=== PATIENT | female | born 1970 | race African-American/Black ===

== ENCOUNTER 2018-01-03 14:30 | Emergency (ER) ==
[2018-01-03 14:40] VITALS: BP 128/85; TEMP 96.1; BMI 37.4
--- NOTE | 2018-01-03 14:58 | ED.PDOC ---
General ED Provider: Dr. VERONICA SALTER MD Chief Complaint: Non-specific Complaint Stated Complaint: tiny yellowish vaginal discharge Time Seen by Physician: 03:00 Mode of Arrival: Walk-In Information Source: Patient Exam Limitations: No limitations Primary Care Provider: [facility] Nursing and Triage Documentation Reviewed and Agree: Yes Reviewed sepsis parameters & appropriate labs ordered?: Yes System Inflammatory Response Syndrome: Not Applicable Sepsis Protocol: For patient's 13 years and over: Temp is 96.8 and below OR 101 and greater Pulse >90 BPM Resp >20/minute Acutely Altered Mental Status Are patient's symptoms suggestive of a new infection, such as: -Pneumonia -Skin, Soft Tissue -Endocarditis -UTI -Bone, Joint Infection -Implantable Device -Acute Abdominal Infection -Wound Infection -Meningitis -Blood Stream Catheter Infection -Unknown Complaint Exam - Complaint/Exam Onset/Duration: few days Symptoms Are: Still present Timing: Intermittent (mild yellow) Initial Severity: Mild Current Severity: None Location of Pain: Reports: None Aggravating: Reports: None Alleviating: Reports: None Ectopic Risk Factors: Reports: None RH Status: Unknown Related Surgical History: Reports: None Abdominal Findings: Present: None (vaginal exam deferred per patient) Review of Systems - Review Of Systems Constitutional: Reports: No symptoms Eyes: Reports: No symptoms Ears, Nose, Mouth, Throat: Reports: No symptoms Respiratory: Reports: No symptoms Cardiac: Reports: No symptoms GI: Reports: No symptoms : Reports: Discharge (mild yellow vag ) Musculoskeletal: Reports: No symptoms Skin: Reports: No symptoms Neurological: Reports: No symptoms Endocrine: Reports: No symptoms Hematologic/Lymphatic: Reports: No symptoms All Other Systems: Reviewed and Negative Past Medical History - Past Medical History Endocrine: Reports: None Cardiovascular: Reports: None Respiratory: Reports: None, Other Hematological: Reports: None Gastrointestinal: Reports: None Genitourinary: Reports: None Neuro/Psych: Reports: None Musculoskeletal: Reports: None Cancer: Reports: None Last Menstrual Period: na - Surgical History General Surgical History: Reports: None - Family History Family History: Reports: None - Social History Smoking Status: Current some day smoker Hx Substance Use: No Alcohol Screening: None - Immunizations Tetanus Shot up to Date: Yes Physical Exam - Physical Exam Appearance: Well-appearing, No pain distress, Well-nourished Ill-appearing: None Pain Distress: None Eyes: KATHI, EOMI, Conjunctiva clear ENT: Ears normal, Nose normal, Oropharynx normal Neck: Supple Respiratory: Airway patent, Breath sounds clear, Breath sounds equal, Respirations nonlabored Cardiovascular: RRR, Pulses normal, No rub, No murmur GI/: Soft, Nontender, No masses, Bowel sounds normal, No Organomegaly Musculoskeletal: Normal strength, ROM intact, No edema, No calf tenderness Skin: Warm, Dry, Normal color Neurological: Sensation intact, Motor intact, Reflexes intact, Cranial nerves intact, Alert, Oriented Re-Evaluation - Re-Evaluation Time of Re-Evaluation: 03:15 Status: Unchanged Vital Signs Stable: Yes Appearance: NAD Lungs: Clear Skin: Warm and Dry Neuro: Alert and Oriented X3 CV: RRR Critical Care Note - Critical Care Note Total Time (mins): 0 Course - Course Orders, Labs, Meds: Orders Category Date Time Status Ceftriaxone Sodium [Rocephin] MEDS 01/03/18 15:00 Discontinued 500 mg IM ONCE STA Lidocaine HCl/Pf [Lidocaine HCl 1% Sdv] MEDS 01/03/18 15:00 Discontinued 2.1 ml IM ONCE STA Medications Discontinued Medications Generic Name Dose Route Start Last Admin Trade Name Freq PRN Reason Stop Dose Admin Ceftriaxone Sodium 500 mg 01/03/18 15:00 01/03/18 15:18 Rocephin IM 01/03/18 15:01 500 mg ONCE STA Administration Lidocaine HCl 2.1 ml 01/03/18 15:00 01/03/18 15:19 Lidocaine Hcl 1% Sdv IM 01/03/18 15:01 2.1 ml ONCE STA Administration Vital Signs: Temp Pulse Resp BP Pulse Ox 01/03/18 14:32 96.1 F L 113 H 20 128/85 95 Departure - Departure Time of Disposition: 15:40 Disposition: HOME SELF-CARE Discharge Problem: Vaginal discharge Condition: Good Pt referred to PMD for follow-up: Yes IPMP verified?: No Allergies/Adverse Reactions: Allergies Sulfa (Sulfonamide Antibiotics) Adverse Reaction (Verified 11/16/15 04:05) BREAK OUT Home Medications: Ambulatory Orders Albuterol Sulfate [Proair Hfa] 2 puff IH Q4H PRN 09/05/15 Amlodipine Besylate 10 mg PO DAILY 09/05/15 Aspirin [Aspirin Chewable] 81 mg PO DAILYWM 09/05/15 Atorvastatin Calcium [Lipitor] 10 mg PO DAILY 09/05/15 Buspirone HCl 15 mg PO TID 09/05/15 Citalopram Hydrobromide [Celexa] 40 mg PO DAILY 09/05/15 Ibuprofen 800 mg PO TID #30 tablet 09/05/15 Losartan Potassium [Cozaar] 50 mg PO DAILY 09/05/15 Metformin HCl [Glucophage] 1,000 mg PO BEDTIME 09/05/15
[2018-01-03] MEDS ORDERED: ROCEPHIN IM STA (15:00)
[2018-01-03] MEDS ORDERED: LIDOCAINE HCL 1% SDV IM STA (15:00)
== END 2018-01-03 16:09 | disposition home or self-care (01) ==
LOC: ED 14:30
DX: N89.8 Other specified noninflammatory disorders of vagina (principal); F17.210 Nicotine dependence, cigarettes, uncomplicated
CPT/HCPCS: 96372; 99283

== ENCOUNTER 2019-01-16 11:10 | Emergency (ER) ==
[2019-01-16 11:17] VITALS: BP 134/90; TEMP 98.5; BMI 34.8
--- NOTE | 2019-01-16 12:18 | ED.PDOC ---
General ED Provider: Dr. VERONICA NUGENT Chief Complaint: Back Pain Stated Complaint: Severe lower back pain. HPI Works at [employer] and last month lifted a crate of chicken and strained her low back. States most of pain midline of LS region with some discomfort radiating into Rt Posterior hip and proximal thigh. Has been under care of [facility] and most recently evaluated by Wilmer COKER. MRI Imaging revealed degenerative lumbar disease and lumbar instability ( Spondylothesis). Pt state was taken off work for 4 weeks and provider recommended on his note to change her job function in an attempt to avoid positions and activities that would excaberate her symptoms. Time Seen by Physician: 11:20 Mode of Arrival: Walk-In Information Source: Patient Exam Limitations: Clinical condition Nursing and Triage Documentation Reviewed and Agree: Yes Does patient meet sepsis criteria?: No System Inflammatory Response Syndrome: Not Applicable Sepsis Protocol: For patient's 13 years and over: Temp is 96.8 and below OR 101 and greater Pulse >90 BPM Resp >20/minute Acutely Altered Mental Status Are patient's symptoms suggestive of a new infection, such as: -Pneumonia -Skin, Soft Tissue -Endocarditis -UTI -Bone, Joint Infection -Implantable Device -Acute Abdominal Infection -Wound Infection -Meningitis -Blood Stream Catheter Infection -Unknown Musculoskeletal Complaint Exam - Back Pain Complaint/Exam Mechanism of Injury: Reports: Other (Lifting injury) Onset/Duration: 3 weeks Symptoms Are: Worse Timing: Constant Episodes Lasting: Hours Initial Severity: Severe Current Severity: Severe Location: Reports: Diffuse, Radiating Character: Reports: Sharp, Aching, Throbbing, Spasmodic Aggravating: Reports: Movements, Lifting, Bending, Walking Alleviating: Reports: Rest (minimal relief) Associated Signs and Symptoms: Denies: Swelling, Redness, Bruising, Fever, Weakness, Numbness, Tingling, Abdominal pain, Flank pain, Bladder incontinence, Bowel incontinence, Weight loss, Pain with weight bearing Related History: Denies: Similar episode TAD Risk Factors: Reports: None AAA Risk Factors: Reports: None Cauda Equina Risk Factors: Reports: None Epidural Abcess Risk Factors: Reports: None Focal Tenderness: Yes (LS regon and Rt SI) Paraspinal Muscle Tenderness: No Paraspinal Muscle Spasm: Yes (Rt LS) Scoliosis: No Lordosis: No Kyphosis: No SLR Test: Right Negative (Seated and supine), Left Negative Hip Motion Testing Pain: Right Positive, Left Negative Focal Weakness: Present: RLE Focal Sensory Loss: Present: None Gait: Present: Abnormal Back Picture: 1 - Site of pain Review of Systems - Review Of Systems Constitutional: Reports: No symptoms Eyes: Reports: No symptoms Ears, Nose, Mouth, Throat: Reports: No symptoms Respiratory: Reports: No symptoms Cardiac: Reports: No symptoms GI: Reports: No symptoms : Reports: No symptoms Musculoskeletal: Reports: Back pain, Joint pain, Muscle stiffness Skin: Reports: No symptoms Neurological: Reports: No symptoms Endocrine: Reports: No symptoms Hematologic/Lymphatic: Reports: No symptoms All Other Systems: Reviewed and Negative Past Medical History - Past Medical History Endocrine: Reports: None Cardiovascular: Reports: None Respiratory: Reports: None, Other Hematological: Reports: None Gastrointestinal: Reports: None Genitourinary: Reports: None Neuro/Psych: Reports: None Musculoskeletal: Reports: None Cancer: Reports: None Last Menstrual Period: january 02 - Surgical History General Surgical History: Reports: None - Family History Family History: Reports: None - Social History Smoking Status: Current every day smoker, Light tobacco smoker Hx Substance Use: No Alcohol Screening: None Physical Exam - Physical Exam Appearance: Ill-appearing, Obese Ill-appearing: None Pain Distress: Moderate Eyes: KATHI, EOMI, Conjunctiva clear ENT: Ears normal Neck: Supple Respiratory: Airway patent, Breath sounds clear, Breath sounds equal, Respirations nonlabored Cardiovascular: RRR GI/: Soft, Nontender, No masses, Bowel sounds normal, No Organomegaly Musculoskeletal: Normal strength, No edema, No calf tenderness, Limited ROM Skin: Warm, Dry, Normal color Neurological: Sensation intact, Motor intact, Reflexes intact, Cranial nerves intact, Alert, Oriented Psychiatric: Affect appropriate, Mood appropriate, Anxious Critical Care Note - Critical Care Note Total Time (mins): 60 Course - Course Hematology/Chemistry: 01/16/19 12:40 01/16/19 12:40 Orders, Labs, Meds: Lab Review 01/16/19 01/16/19 01/16/19 12:30 12:40 12:40 WBC 8.97 RBC 5.03 Hgb 14.3 Hct 42.7 MCV 84.9 MCH 28.4 MCHC 33.5 RDW Coeff of Sridhar 12.7 Plt Count 305 Immature Gran % (Auto) 0.2 Neut % (Auto) 54.4 Lymph % (Auto) 32.0 [place] % (Auto) 6.2 Eos % (Auto) 6.6 Baso % (Auto) 0.6 Immature Gran # (Auto) 0.0 Neut # (Auto) 4.9 Lymph # (Auto) 2.9 [place] # (Auto) 0.6 Eos # (Auto) 0.6 Baso # (Auto) 0.1 ESR Sodium 139.9 Potassium 3.98 Chloride 102.3 Carbon Dioxide 27.8 Anion Gap 13.78 BUN 14.1 Creatinine 0.96 Estimated GFR (MDRD) 75.00 BUN/Creatinine Ratio 14.68 Glucose 92.2 Calcium 9.60 Total Bilirubin 0.60 AST 19.0 ALT 15.7 Alkaline Phosphatase 83.5 Total Creatine Kinase 57.8 Total Protein 8.24 H Albumin 4.82 Globulin 3.42 Albumin/Globulin Ratio 1.40 Urine Color Yellow Urine Clarity Clear Urine pH 5.5 Ur Specific [place] 1.025 Urine Protein Negative Urine Glucose (UA) Negative Urine Ketones Negative Urine Blood Negative Urine Nitrite Negative Urine Bilirubin Negative Urine Urobilinogen 0.2 Ur Leukocyte Esterase Negative Urine Opiates Screen Ur Oxycodone Screen Urine Methadone Screen Ur Propoxyphene Screen Ur Barbiturates Screen U Tricyclic Antidepress Ur Phencyclidine Scrn Ur Amphetamine Screen U Methamphetamines Scrn U Benzodiazepines Scrn Urine Cocaine Screen U Cannabinoids Screen 01/16/19 01/16/19 12:40 12:40 WBC RBC Hgb Hct MCV MCH MCHC RDW Coeff of Sridhar Plt Count Immature Gran % (Auto) Neut % (Auto) Lymph % (Auto) [place] % (Auto) Eos % (Auto) Baso % (Auto) Immature Gran # (Auto) Neut # (Auto) Lymph # (Auto) [place] # (Auto) Eos # (Auto) Baso # (Auto) ESR 14 Sodium Potassium Chloride Carbon Dioxide Anion Gap BUN Creatinine Estimated GFR (MDRD) BUN/Creatinine Ratio Glucose Calcium Total Bilirubin AST ALT Alkaline Phosphatase Total Creatine Kinase Total Protein Albumin Globulin Albumin/Globulin Ratio Urine Color Urine Clarity Urine pH Ur Specific [place] Urine Protein Urine Glucose (UA) Urine Ketones Urine Blood Urine Nitrite Urine Bilirubin Urine Urobilinogen Ur Leukocyte Esterase Urine Opiates Screen Positive Ur Oxycodone Screen Negative Urine Methadone Screen Negative Ur Propoxyphene Screen Negative Ur Barbiturates Screen Negative U Tricyclic Antidepress Negative Ur Phencyclidine Scrn Negative Ur Amphetamine Screen Negative U Methamphetamines Scrn Negative U Benzodiazepines Scrn Negative Urine Cocaine Screen Negative U Cannabinoids Screen Negative Orders Category Date Time Status CBC W/ AUTO DIFF Stat LAB 01/16/19 12:40 Completed CMP [COMPREHENSIVE METABOLIC PANEL] Stat LAB 01/16/19 12:40 Completed CPK [CREATINE KINASE] Stat LAB 01/16/19 12:40 Completed ESR Stat LAB 01/16/19 12:40 Completed UA [URINALYSIS C & S IF INDICATED] Stat LAB 01/16/19 12:30 Completed URINE DRUG SCREEN (RAPID FOR ED) [DRUG SCREEN, URINE, LAB 01/16/19 12:40 Completed RAPID] Stat Nalbuphine HCl [Nubain] MEDS 01/16/19 12:25 Discontinued 10 mg IM ONCE STA Orphenadrine Citrate [Norflex] MEDS 01/16/19 12:24 Discontinued 60 mg IM ONCE STA Medications Discontinued Medications Generic Name Dose Route Start Last Admin Trade Name Freq PRN Reason Stop Dose Admin Nalbuphine HCl 10 mg 01/16/19 12:25 01/16/19 12:37 Nubain IM 01/16/19 12:26 10 mg ONCE STA Administration Orphenadrine Citrate 60 mg 01/16/19 12:24 01/16/19 12:36 Norflex IM 01/16/19 12:25 60 mg ONCE STA Administration Vital Signs: Temp Pulse Resp BP Pulse Ox 01/16/19 11:10 98.5 F 105 H 20 134/90 96 Departure - Departure Time of Disposition: 13:50 Disposition: HOME SELF-CARE Discharge Problem: Lumbar spine pain, Lumbar degenerative disc disease Instructions: Low Back Strain (ED), Degenerative Disc Disease (ED) Condition: Fair Pt referred to PMD for follow-up: Yes (in next week) IPMP verified?: Yes (no findings) Additional Instructions: Use existing meds at home. Your urine drug screen was positive for opiates-use cautiousl See PCP or specialist as planned Return to ER as necessary Allergies/Adverse Reactions: Allergies Sulfa (Sulfonamide Antibiotics) Adverse Reaction (Verified 01/16/19 11:19) BREAK OUT Home Medications: Ambulatory Orders Albuterol Sulfate [Proair Hfa] 2 puff IH Q4H PRN 09/05/15 Amlodipine Besylate 10 mg PO DAILY 09/05/15 Aspirin [Aspirin Chewable] 81 mg PO DAILYWM 09/05/15 Atorvastatin Calcium [Lipitor] 10 mg PO DAILY 09/05/15 Buspirone HCl 15 mg PO TID 09/05/15 Citalopram Hydrobromide [Celexa] 40 mg PO DAILY 09/05/15 Losartan Potassium [Cozaar] 50 mg PO DAILY 09/05/15 Metformin HCl [Glucophage] 1,000 mg PO BEDTIME 09/05/15 Meloxicam 15 mg PO BID 01/16/19 Quetiapine Fumarate 50 mg PO BEDTIME 01/16/19 Disposition Discussed With: Patient
[2019-01-16] MEDS ORDERED: NORFLEX IM STA (12:24)
[2019-01-16] MEDS ORDERED: NUBAIN IM STA (12:25)
== END 2019-01-16 14:02 | disposition home or self-care (01) ==
LOC: ED 11:10
DX: M54.5 Low back pain (principal); M51.36 Other intervertebral disc degeneration, lumbar region; F17.210 Nicotine dependence, cigarettes, uncomplicated; Z79.899 Other long term (current) drug therapy
CPT/HCPCS: 36415; 80053; 80306; 81001; 82550; 85025; 85651; 96372; 99283

== ENCOUNTER 2019-02-04 18:50 | Emergency (ER) ==
[2019-02-04 19:02] VITALS: BP 134/97; TEMP 99.2; BMI 33.9
--- NOTE | 2019-02-04 20:07 | ED.PDOC ---
General ED Provider: Dr. JOSE JOHNSON Chief Complaint: Extremity Pain/Injury Stated Complaint: potenmtial s ciatica robison opn right sie in patient with fdegenerativr dicopathy. 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 Time Seen by Physician: 19:00 Mode of Arrival: Wheelchair Information Source: Patient Exam Limitations: No limitations Primary Care Provider: DAREN JESSICA Nursing and Triage Documentation Reviewed and Agree: Yes Does patient meet sepsis criteria?: No System Inflammatory Response Syndrome: Not Applicable Sepsis Protocol: For patient's 13 years and over: Temp is 96.8 and below OR 101 and greater Pulse >90 BPM Resp >20/minute Acutely Altered Mental Status Are patient's symptoms suggestive of a new infection, such as: -Pneumonia -Skin, Soft Tissue -Endocarditis -UTI -Bone, Joint Infection -Implantable Device -Acute Abdominal Infection -Wound Infection -Meningitis -Blood Stream Catheter Infection -Unknown Musculoskeletal Complaint Exam - Back Pain Complaint/Exam Mechanism of Injury: Reports: No known trauma Onset/Duration: today Symptoms Are: Still present Timing: Constant Episodes Lasting: Hours Initial Severity: Moderate Current Severity: Moderate Location: Reports: Diffuse Character: Reports: Aching Aggravating: Reports: Movements, Lifting, Bending Alleviating: Reports: Rest Related History: Reports: Similar episode TAD Risk Factors: Reports: None AAA Risk Factors: Reports: None Cauda Equina Risk Factors: Reports: None Epidural Abcess Risk Factors: Reports: None Related Surgical History: Reports: None Focal Tenderness: No Paraspinal Muscle Tenderness: No Paraspinal Muscle Spasm: No Scoliosis: No Lordosis: No Kyphosis: No Focal Weakness: Present: None Focal Sensory Loss: Present: None Gait: Present: Unable Differential Diagnoses: Arthritis, Herniated Disk, Strain, Sprain, Other Review of Systems - Review Of Systems Constitutional: Reports: No symptoms Eyes: Reports: No symptoms Ears, Nose, Mouth, Throat: Reports: No symptoms Respiratory: Reports: No symptoms Cardiac: Reports: No symptoms GI: Reports: No symptoms : Reports: No symptoms Musculoskeletal: Reports: Back pain, Muscle pain, Other Skin: Reports: No symptoms Neurological: Reports: Weakness Endocrine: Reports: No symptoms Hematologic/Lymphatic: Reports: No symptoms All Other Systems: Reviewed and Negative Past Medical History - Past Medical History Endocrine: Reports: None Cardiovascular: Reports: None Respiratory: Reports: None, Other Hematological: Reports: None Gastrointestinal: Reports: None Genitourinary: Reports: None Neuro/Psych: Reports: None Musculoskeletal: Reports: None Cancer: Reports: None Last Menstrual Period: 02/01/19 - Surgical History General Surgical History: Reports: None - Family History Family History: Reports: None - Social History Smoking Status: Current every day smoker, Light tobacco smoker Hx Substance Use: No Alcohol Screening: None Physical Exam - Physical Exam Appearance: Well-appearing Ill-appearing: Mild Pain Distress: Severe Eyes: KATHI ENT: Ears normal, Nose normal, Oropharynx normal Neck: Supple Respiratory: Airway patent, Breath sounds clear Cardiovascular: RRR, Pulses normal, No rub, No murmur GI/: Soft, Nontender, No masses Musculoskeletal: Normal strength Skin: Warm, Dry Neurological: Sensation intact Psychiatric: Affect appropriate Critical Care Note - Critical Care Note Total Time (mins): 0 Course - Course Orders, Labs, Meds: Orders Category Date Time Status IV [ED IV/MEDIPORT/POWERPORT] .ONCE EMERGENCY 02/04/19 20:08 Active 0.9 % Sodium Chloride [Saline Flush] MEDS 02/04/19 20:08 Ordered 1 syr IVF PRN PRN Hydromorphone HCl [Dilaudid 1 mg/ml Syringe] MEDS 02/04/19 21:17 Discontinued 1 mg IVP ONCE STA Ketorolac Tromethamine [Toradol] MEDS 02/04/19 20:08 Discontinued 30 mg IM ONCE STA Methylprednisolone Sod Succ/Pf [Solu-Medrol 125 mg] MEDS 02/04/19 21:18 Discontinued 60 mg IVP ONCE STA CT LUMBAR SPINE W/O CONTRAST Stat RADS 02/04/19 20:09 Completed Medications Generic Name Dose Route Start Last Admin Trade Name Freq PRN Reason Stop Dose Admin Sodium Chloride 1 syr 02/04/19 20:08 02/04/19 20:52 Saline Flush IVF 1 syr PRN PRN Administration To flush IV Discontinued Medications Generic Name Dose Route Start Last Admin Trade Name Freq PRN Reason Stop Dose Admin Hydromorphone HCl 1 mg 02/04/19 21:17 02/04/19 21:42 Dilaudid 1 Mg/Ml Syringe IVP 02/04/19 21:18 1 mg ONCE STA Administration Ketorolac Tromethamine 30 mg 02/04/19 20:08 02/04/19 20:51 Toradol IM 02/04/19 20:09 30 mg ONCE STA Administration Methylprednisolone Sodium Succinate 60 mg 02/04/19 21:18 02/04/19 21:42 Solu-Medrol 125 Mg IVP 02/04/19 21:19 60 mg ONCE STA Administration Vital Signs: Temp Pulse Resp BP Pulse Ox 02/04/19 18:54 99.2 F 89 20 134/97 H 96 Departure - Departure Time of Disposition: 23:09 Disposition: HOME SELF-CARE Discharge Problem: Sciatica, Spinal stenosis Instructions: Low Back Strain (ED) Condition: Fair Pt referred to PMD for follow-up: Yes (she is scheduled to see her spacialist on ) IPMP verified?: No Allergies/Adverse Reactions: Allergies Sulfa (Sulfonamide Antibiotics) Adverse Reaction (Verified 02/04/19 19:02) BREAK OUT Home Medications: Ambulatory Orders Albuterol Sulfate [Proair Hfa] 2 puff IH Q4H PRN 09/05/15 Amlodipine Besylate 10 mg PO DAILY 09/05/15 Aspirin [Aspirin Chewable] 81 mg PO DAILYWM 09/05/15 Atorvastatin Calcium [Lipitor] 10 mg PO DAILY 09/05/15 Citalopram Hydrobromide [Celexa] 40 mg PO DAILY 09/05/15 Losartan Potassium [Cozaar] 50 mg PO DAILY 09/05/15 Metformin HCl [Glucophage] 1,000 mg PO BEDTIME 09/05/15 Meloxicam 15 mg PO BID 01/16/19 Quetiapine Fumarate 50 mg PO BEDTIME 01/16/19 Atenolol [Tenormin] 25 mg PO DAILY 02/04/19 Celecoxib [Celebrex] 100 mg PO BID PRN 02/04/19 Hydrochlorothiazide 25 mg PO DAILY 02/04/19 Disposition Discussed With: Patient, Family
[2019-02-04] MEDS ORDERED: TORADOL IM STA (20:08)
--- NOTE | 2019-02-04 20:51 | CT ---
EXAM: CT scan of the lumbar spine without contrast HISTORY: Severe low back pain right sciatica. TECHNIQUE: Helical imaging of the lumbar spine was performed without contrast. Axial images and sa gittal and coronal reconstructions and axial images were provided for interpretation. FINDINGS: There is no evidence of acute compression fracture. The paraspinal soft tissues are kajal l. There is slight anterior subluxation of the L4 on the L5 vertebral body measuring 3 mm. There is no pars defect. Facet joint arthropathy is identified within the lower lumbar spine. Five lumbar-t ype vertebral bodies are identified. Segmental analysis: T12-L1: The central canal and neural foramina appear patent. L1-L2: The central canal appears patent. There is mild narrowing of the neural foramina. L2-L3: The central canal and neural foramina appear patent. L3-L4: The central canal appears patent. There is mild narrowing of the neural foramina secondary t o mild disc bulge and facet arthropathy. L4-L5: There is disc bulge and mild to moderate facet arthropathy resulting in mild narrowing of the central canal and lateral recesses. There is moderate bilateral foraminal stenosis at this level. L5-S1: The central canal and lateral recesses and neural foramina appear adequately patent. IMPRESSION: Mild grade 1 degenerative spondylolisthesis seen at L4-L5 measuring 3 mm. There is disc bulge and facet arthropathy resulting in moderate bilateral foraminal stenosis at L4-L5 . No acute fractures are seen within the lumbar spine.
[2019-02-04] MEDS ORDERED: DILAUDID 1 MG/ML SYRINGE IVP STA (21:17)
[2019-02-04] MEDS ORDERED: SOLU-MEDROL 125 MG IVP STA (21:18)
== END 2019-02-04 23:34 | disposition home or self-care (01) ==
LOC: ED 18:50
DX: M54.30 Sciatica, unspecified side (principal); M48.00 Spinal stenosis, site unspecified; F17.210 Nicotine dependence, cigarettes, uncomplicated
CPT/HCPCS: 96375; 99283

== ENCOUNTER 2019-02-05 03:09 | Outpatient (CLI) ==
[2019-02-04 19:02] VITALS: BMI 33.9
== END 2019-02-05 03:30 | disposition short-term general hospital (02) ==
LOC: AMBL 03:09
PROVIDERS: ATTEND Emergency Medicine
DX: M54.5 Low back pain (principal); M79.604 Pain in right leg

== ENCOUNTER 2019-03-05 20:50 | Emergency (ER) ==
[2019-03-05 20:59] VITALS: BP 140/90; TEMP 99.2; BMI 35.2
--- NOTE | 2019-03-05 21:32 | ED.PDOC ---
General ED Provider: Dr. JC GARSIA Chief Complaint: Vaginal Discharge/Swelling Stated Complaint: Patient states that she has had vaginal itching for the past two days. Denies any Vaginal discharge. Has only one partner. she is Diabetic but blood glucose is controlled. Time Seen by Physician: 21:29 Mode of Arrival: Walk-In Information Source: Patient Primary Care Provider: DAREN JESSICA Nursing and Triage Documentation Reviewed and Agree: Yes Does patient meet sepsis criteria?: No System Inflammatory Response Syndrome: Not Applicable Sepsis Protocol: For patient's 13 years and over: Temp is 96.8 and below OR 101 and greater Pulse >90 BPM Resp >20/minute Acutely Altered Mental Status Are patient's symptoms suggestive of a new infection, such as: -Pneumonia -Skin, Soft Tissue -Endocarditis -UTI -Bone, Joint Infection -Implantable Device -Acute Abdominal Infection -Wound Infection -Meningitis -Blood Stream Catheter Infection -Unknown Complaint Exam - Complaint/Exam Patient Complains of: Denies: Vaginal discharge, Pain (but itching ), Foreign body, Dysuria Onset/Duration: 2 days. Symptoms Are: Still present Timing: Constant Initial Severity: Mild Current Severity: Mild Aggravating: Reports: None Alleviating: Reports: None Associated Signs and Symptoms: Denies: Diaphoresis, Back pain, Fever, Hematuria , Dysuria, Constipation, Blood in stool, Rectal pain, Appetite change, Nausea, Vomiting, Decreased urine output, Increased urine frequency, Increased thirst, Decreased activity, Lethargy, Abdominal Pain, Bubble bath use, Vaginal bleeding , Vaginal discharge, Genital swelling, Genital blisters, Retained foreign body Vulva Exam: Present: Normal Findings Vaginal Exam: Present: Discharge (minimal white ) Differential Diagnoses: UTI, Other (vaginal yeast ) Review of Systems - Review Of Systems Constitutional: Reports: No symptoms Eyes: Reports: No symptoms Ears, Nose, Mouth, Throat: Reports: No symptoms Respiratory: Reports: No symptoms Cardiac: Reports: No symptoms GI: Reports: No symptoms : Reports: Other (vaginal itching ) Musculoskeletal: Reports: No symptoms Skin: Reports: No symptoms Neurological: Reports: No symptoms Endocrine: Reports: No symptoms Hematologic/Lymphatic: Reports: No symptoms All Other Systems: Reviewed and Negative Past Medical History - Past Medical History Endocrine: Reports: DM 2 (on oral medications. ), Dyslipidemia Cardiovascular: Reports: Hypertension Respiratory: Reports: None, Other Hematological: Reports: None Gastrointestinal: Reports: None Genitourinary: Reports: None Neuro/Psych: Reports: Depression Musculoskeletal: Reports: None Cancer: Reports: None Last Menstrual Period: last month Other Pertinent Past Medical History: Shingles. - Surgical History General Surgical History: Reports: Tubal ligation, Other (D and C ) - Family History Family History: Reports: None - Social History Smoking Status: Current every day smoker, Light tobacco smoker Hx Substance Use: No Alcohol Screening: None Physical Exam - Physical Exam Appearance: Obese Ill-appearing: None Pain Distress: None Neck: Supple Respiratory: Airway patent, Breath sounds clear, Breath sounds equal, Respirations nonlabored Cardiovascular: RRR, Pulses normal, No rub, No murmur GI/: Soft Musculoskeletal: Normal strength, ROM intact, No edema, No calf tenderness Neurological: Alert, Oriented Critical Care Note - Critical Care Note Total Time (mins): 0 Course - Course Orders, Labs, Meds: Lab Review 03/05/19 03/05/19 21:02 21:24 Urine Color Yellow Urine Clarity Clear Urine pH 5.5 Ur Specific [place] >=1.030 Urine Protein Negative Urine Glucose (UA) Negative Urine Ketones Trace Urine Blood Negative Urine Nitrite Negative Urine Bilirubin Negative Urine Urobilinogen 1.0 Ur Leukocyte Esterase Negative ZACK Preparation No fungal elements Orders Category Date Time Status CHLAMYDIA/GC AMPLIFICATION Stat LAB 03/05/19 21:02 Received ZACK PREP Stat LAB 03/05/19 21:24 Completed URINALYSIS C & S IF INDICATED Stat LAB 03/05/19 21:02 Completed VAGINAL CULTURE [GENITAL CULTURE] Stat LAB 03/05/19 21:24 Received Fluconazole [Diflucan] MEDS 03/05/19 21:39 Discontinued 150 mg PO ONCE STA Medications Discontinued Medications Generic Name Dose Route Start Last Admin Trade Name Freq PRN Reason Stop Dose Admin Fluconazole 150 mg 03/05/19 21:39 03/05/19 21:49 Diflucan PO 03/05/19 21:40 150 mg ONCE STA Administration Vital Signs: Temp Pulse Resp BP Pulse Ox 03/05/19 20:51 99.2 F 100 H 20 140/90 96 Departure - Departure Time of Disposition: 22:06 Disposition: HOME SELF-CARE Discharge Problem: Vaginal irritation, Vaginal yeast infection Instructions: Yeast Infection (ED) Condition: Good Pt referred to PMD for follow-up: Yes IPMP verified?: No Additional Instructions: Follow up with PCP as needed. Allergies/Adverse Reactions: Allergies Sulfa (Sulfonamide Antibiotics) Adverse Reaction (Verified 02/04/19 19:02) BREAK OUT Home Medications: Ambulatory Orders Albuterol Sulfate [Proair Hfa] 2 puff IH Q4H PRN 09/05/15 Amlodipine Besylate 10 mg PO DAILY 09/05/15 Aspirin [Aspirin Chewable] 81 mg PO DAILYWM 09/05/15 Atorvastatin Calcium [Lipitor] 10 mg PO DAILY 09/05/15 Citalopram Hydrobromide [Celexa] 40 mg PO DAILY 09/05/15 Losartan Potassium [Cozaar] 50 mg PO DAILY 09/05/15 Metformin HCl [Glucophage] 1,000 mg PO BEDTIME 09/05/15 Quetiapine Fumarate 50 mg PO BEDTIME 01/16/19 Atenolol [Tenormin] 25 mg PO DAILY 02/04/19 Celecoxib [Celebrex] 100 mg PO BID PRN 02/04/19 Hydrochlorothiazide 25 mg PO DAILY 02/04/19
[2019-03-05] MEDS ORDERED: DIFLUCAN PO STA (21:39)
== END 2019-03-05 22:07 | disposition home or self-care (01) ==
LOC: ED 20:50
DX: B37.3 Candidiasis of vulva and vagina (principal); E11.9 Type 2 diabetes mellitus without complications; I10 Essential (primary) hypertension; F17.210 Nicotine dependence, cigarettes, uncomplicated; Z79.899 Other long term (current) drug therapy
CPT/HCPCS: 36415; 81001; 87070; 87210; 87800; 99283

== ENCOUNTER 2019-04-08 15:44 | Outpatient (CLI) | END 2019-04-08 15:45 | disposition home or self-care (01) | LOC: RHC-LAB 15:44 | PROVIDERS: ATTEND Nurse Practitioner Family | DX: E11.9 Type 2 diabetes mellitus without complications (principal); Z00.00 Encounter for general adult medical examination without abnormal findings; I10 Essential (primary) hypertension; E78.5 Hyperlipidemia, unspecified | CPT/HCPCS: 36415; 80053; 80061; 83036; 84443; 85025 ==